=== PATIENT | female | born 1960 ===

== ENCOUNTER 2017-10-25 05:22 | Emergency (ER) | payer SELFPAY ==
[2017-10-25 05:33] VITALS: BP 145/85
[2017-10-25] MEDS ORDERED: ATROVENT IH ONE (05:34)
[2017-10-25] MEDS ORDERED: PROVENTIL IH ONE (05:34)
== END 2017-10-25 09:43 | disposition left against medical advice (07) ==
LOC: ED 05:22
DX: J02.9 Acute pharyngitis, unspecified (principal); Z53.21 Procedure and treatment not carried out due to patient leaving prior to being seen by health care provider
CPT/HCPCS: 87116; 87430; 94640